=== PATIENT | female | born 1945 | race Caucasian/White ===

== ENCOUNTER 2016-05-24 14:30 | Outpatient (CLI) | payer MEDICARE ==
--- NOTE | 2016-05-25 16:36 | Mammography Report ---
DIGITAL BILATERAL SCREENING MAMMOGRAM: 05/24/2016 CLINICAL HISTORY: A 70-year-old female, asymptomatic. COMPARISON: 05/26/2014. TECHNIQUE: Routine CC and MLO projections were obtained of the breasts. FINDINGS: Heterogeneously dense tissue is present. This pattern does limit mammographic sensitivity. RIGHT BREAST: The glandular pattern is stable. No developing mass, distortion or pleomorphic calcific ations. LEFT BREAST: There is apparent developing asymmetry in the anterior central position. The remainder o f the parenchymal pattern is stable. Recommend targeted diagnostic evaluation. IMPRESSION: 1. RIGHT BREAST: STABLE EXAMINATION (BIRADS CATEGORY 1). 2. LEFT BREAST: POSSIBLE DEVELOPING ASYMMETRY IN THE ANTERIOR CENTRAL POSITION. THE PATIENT SHOULD BE RECALLED TO UNDERGO TARGETED DIAGNOSTIC EVALUATION. THE FINAL IMPRESSION IS PENDING AT THIS TIME (BI RADS CATEGORY 0). STANDARD QUALIFYING STATEMENTS 1. This examination was reviewed with the aid of Computer-Aided Detection (CAD). 2. A negative or benign imaging report should not delay biopsy if clinically suspicious findings are present. Consider surgical consultation if warranted. More than 5% of cancers are not identified by i maging. 3. Dense breasts may obscure an underlying neoplasm. JOB #: [id number] EXT JOB #:[id number]
== END 2016-05-24 14:31 | disposition home or self-care (01) ==
LOC: DI.N 14:30
PROVIDERS: ATTEND Internal Medicine
DX: Z12.31 Encounter for screening mammogram for malignant neoplasm of breast (principal); R92.8 Other abnormal and inconclusive findings on diagnostic imaging of breast
CPT/HCPCS: 77067

== ENCOUNTER 2016-06-07 12:48 | Outpatient (CLI) | payer MEDICARE | END 2016-06-07 12:49 | disposition home or self-care (01) | DX: R92.8 Other abnormal and inconclusive findings on diagnostic imaging of breast (principal) | CPT/HCPCS: 76642; G0206 ==

== ENCOUNTER 2021-05-25 12:51 | Outpatient (CLI) | payer MEDICARE ==
--- NOTE | 2021-05-26 07:54 | DEXA Report ---
PROCEDURE: Dexa Spine and/or Hip INDICATIONS: POST MENOPAUSAL TECHNIQUE: Dual energy x-ray absorptiometry (DXA) was performed on a [employer] System. Regions measur ed are the AP Spine, femoral neck, and if needed forearm. COMPARISON: None. FINDINGS: Lumbar Spine: Bone Mineral Density 1.275 g/cm/cm,T scores 0.8. Left forearm: Bone Mineral Density 0.657 g/cm/cm, T score -2.5. (T score greater or equal to -1.0: NORMAL) (T score from -1.1 to -2.4: OSTEOPENIA) (T score less than or equal to -2.5 to: OSTEOPOROSIS) Impression: Osteoporosis Patients with diagnosis of osteoporosis or osteopenia should have regular bone mineral density assess ment. For those eligible for Medicare, routine testing is allowed once every 2 years. Testing frequ ency can be increased for patients who have rapidly progressing disease or for those who are receivin g medical therapy to restore bone mass. Reviewed by: Jeromy Hernandez MD on 05/26/2021 7:53 AM PDT Approved by: Jeromy Hernandez MD on 05/26/2021 7:53 AM PDT Station ID: [id number]
== END 2021-05-25 12:52 | disposition home or self-care (01) ==
LOC: DI 12:51
PROVIDERS: ATTEND Internal Medicine
DX: M81.0 Age-related osteoporosis without current pathological fracture (principal); Z78.0 Asymptomatic menopausal state

== ENCOUNTER 2022-10-20 16:14 | Outpatient (CLI) | payer MEDICARE ==
--- NOTE | 2022-10-21 17:31 | XRAY Report ---
PROCEDURE: Hip w/Pelvis 2-3V LT INDICATIONS: LEFT HIP PAIN TECHNIQUE: AP pelvis with lateral view(s) of the left hip(s). COMPARISON: None. FINDINGS: Bones: No fractures or dislocations. No suspicious bony lesions. Generalized osteopenia and bilater al hip prosthesis noted to. There is superior migration of the bilateral acetabular component, right greater than left. Degenerative changes noted in the lower lumbar spine Soft tissues: No suspicious soft tissue calcifications or masses. 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 No evidence of fracture o r hardware failure Reviewed by: Shravan Medina MD on 10/21/2022 4:29 PM AKNAIDA Approved by: Shravan Medina MD on 10/21/2022 4:29 PM AKDT Station ID: [id number]
== END 2022-10-20 16:15 | disposition home or self-care (01) ==
LOC: DI 16:14
PROVIDERS: ATTEND Internal Medicine
DX: M25.552 Pain in left hip (principal)